=== PATIENT | male | born 1995 | race Caucasian/White ===

== ENCOUNTER 2023-10-12 09:28 | Day surgery (SDC) | payer OTHER, SELFPAY ==
[2023-10-12] VITALS (14 sets, daily range): BP systolic 107–152; BP diastolic 48–105; PULSE 64–89; RESP 16–18; TEMP 36–37.3; O2SAT 91–100; BMI 41.3
--- NOTE | 2023-10-12 | HERN_PTH ---
PATIENT: RODOLFO VALENCIA [place] [facility] [place][id number] AGE/SX: 27/M ROOM: RE10/12/[address]: Dr. Fawad Lockhart MD : 1995 BED: DIS: 10/12/2023 SPEC #: [id number] RECD: 10/13/23 07:41 STATUS: CHAPARRO CORTESKalpesh #: [id number] HUNG: 10/12/23 00:[address]: Fawad Lockhart DEPT: SURGICAL PATHOLOGY RECD BY: Norma Montes De Oca ENTERED: 10/13/23 08:54 SP TYPE: Hernia OTHR DR: Margoth Norman, CAITLYN Tissues: HERNIA Procedures: Surgery Specimen Level II HEADER OPERATION: Incarcerated umbilical hernia repair without mesh PRE-OP DIAGNOSIS: Incarcerated umbilical hernia TISSUE SUBMITTED: Hernia sac and contents MICROSCOPIC DIAGNOSIS Hernia sac and contents: Fragments of fibroadipose and fibroconnective tissue, consistent with hernia sac with acute and chronic inflammation and reactive changes. FELIX/quentin 10/14/2023 MICROSCOPIC DESCRIPTION Slides are reviewed. GROSS DESCRIPTION Received in fixative is one container labeled with the patient's name and designated Hernia sac and contents. The specimen consists of multiple pieces of soft tissue mixed with adipose tissue measuring in aggregate 11.0 x 6.0 x 2.0cm. No mass lesion is identified. Aircraft Fueler sections are submitted in one cassette. FELIX/ 10/13/2023 TC:3 CPT:26065
--- NOTE | 2023-10-12 10:07 | ED.VIS.GI ---
HPI HPI - GI History of Present Illness Chief Complaint: Abd Pain Narrative Narrative: Patient presents with abdominal pain that began yesterday. Patient states that it comes on gradually. Patient states it is intermittent. Patient states it is over the periumbilical area. Patient states he felt some swelling in the umbilical area. Patient states his pain is worse with bending. Patient describes his pain as aching. Patient denies any nausea or vomiting. Patient denies any diarrhea, melena, or hematochezia. Patient denies any urinary complaints. Patient denies any fevers or chills. PFSH PFSH Medical History no medical history no medical history Home Medications ?Medication ?Instructions ?Recorded ?Last Taken ?Type amoxicillin 875 mg-potassium 1 tab PO BID #20 tabs 01/01/22 Unknown Rx clavulanate 125 mg tablet prednisone 20 mg tablet 40 mg (2 x 20 mg) PO DAILY #20 tabs 01/01/22 Unknown Rx Allergy/AdvReac Type Severity Reaction Status Date / Time No Known Allergies Allergy Verified 10/12/23 09:29 Family History (Updated 01/01/22 @ 20:47 by Margoth Norman ANALYTICAL SCIENCES DIRECTOR, ANALYTICAL SCIENCES DIRECTOR-C) Mother Renal failure Other Congestive heart disease Diabetes Heart disease Surgical History no surgical history no surgical history Social History Smoking Status: Never smoker ROS ROS ED Constitutional Constitutional ED: Denies chills or fever(s) Eyes Eyes: Denies blurry vision or change in vision ENT ENT ED: Denies rhinorrhea or sore throat Cardiovascular Cardiovascular: Denies chest pain or palpitations Respiratory/Chest Respiratory/Chest: Denies cough or dyspnea Gastrointestinal Gastrointestinal: Reports abdominal pain; Denies nausea or vomiting Genitourinary Genitourinary ED: Denies dysuria or hematuria Musculoskeletal Musculoskeletal: Denies back pain or neck pain Integumentary Denies abscess or rash Neurologic Neurologic: Denies headache(s) or weakness Allergic/Immunologic Allergic/Immunologic ED: Denies mouth swelling or urticaria EXAM Physical Exam Const Vital Signs: 10/12/23 09:29 10/12/23 13:29 Temperature 96.8 F L Temperature Source Temporal Pulse Rate 77 64 Respiratory Rate 18 16 Blood Pressure 152/105 H 126/78 H Blood Pressure Mean 120 94 Pulse Ox 96 98 Oxygen Delivery Method Room Air Room Air Positive well nourished, well developed and obese General Appearance ED: well developed and NAD Nutritional Appearance: obese HEENT Reports moist mucous membranes Neck supple and no JVD Resp normal respiratory effort and clear to auscultation bilaterally Cardio regular rate and regular rhythm GI non-distended Palpation: soft, tender periumbilical and hernia umbilical Extremity full ROM Neuro CN's II-XII intact bilaterally, moves all extremities and no sensory deficits noted Sensorium / Orientation: alert Motor Exam: strength 5/5 throughout Psych mental status grossly normal MDM MDM MDM Narrative Medical decision making narrative: Differential diagnosis includes incarcerated umbilical hernia, strangulated umbilical hernia, and abdominal mass. CBC will be obtained to assess for leukocytosis and anemia. Basic metabolic profile will be obtained to assess for electrolyte abnormality and renal function. Lab Data Attestation: I reviewed the patient's lab results. Lab results narrative: CBC was reviewed and was within normal limits. Basic metabolic profile was reviewed and was essentially within normal limits. Labs: Laboratory Results - last 24 hr 10/12/23 09:40 WBC 9.1 RBC 5.67 Hgb 16.4 Hct 48.7 MCV 85.9 MCH 28.9 MCHC 33.7 RDW Std Deviation 37.5 RDW Coeff of Reid 11.9 Plt Count 212 MPV 9.9 Immature Gran % (Auto) 0.300 Neut % (Auto) 64.2 Lymph % (Auto) 25.5 [place] % (Auto) 6.5 Eos % (Auto) 2.9 Baso % (Auto) 0.6 Absolute Neuts (auto) 5.8 Absolute Lymphs (auto) 2.32 Nucleated RBC % 0 Sodium 139 Potassium 3.9 Chloride 106 Carbon Dioxide 27.0 Anion Gap 6 BUN 11 Creatinine 0.94 Estim Creat Clear Calc 171.64 Est GFR (MDRD) Af Amer 125 Est GFR (MDRD) Non-Af 103 BUN/Creatinine Ratio 11.8 Glucose 126 H Calcium 9.1 Radiography Diagnostic Testing: Clinical Impression(s) from Imaging Studies Abdomen/Pelvis CT 10/12/23 11:22 IMPRESSION: Findings suggest a Lopez''s type umbilical hernia with increased markings. The neck of the hernia measures 3.3 cm. Fatty infiltration of the liver. Borderline splenomegaly. Electronically Signed: Chivo Yarbrough MD at 13:19 EDT , CT scan of the abdomen pelvis was obtained. There is a Lopez's type umbilical hernia with increased markings. There is no bowel obstruction. This was interpreted by the radiologist was also independently reviewed by myself. Treatment and Re-Evaluation :: Patient was given IV fluids and morphine. I attempted to reduce the hernia with minimal improvement. Patient was unable to tolerate further attempts at reduction. Case was discussed with Dr. Lockhart from general surgery. He recommended applying ice to the area and repeating morphine. This was ordered. He was in to evaluate the patient. He attempted reduction without success. He will take the patient to the operating room later tonight. He recommended giving the patient Ancef and obtaining an EKG. This was ordered. Patient and family understood and were agreeable with the plan. All questions were answered. Discharge Plan Triage Chief Complaint: Abd Pain ED Provider: Robbie Barrett Dx/Rx/DC Orders Clinical Impression: Incarcerated umbilical hernia, Abdominal pain Prescriptions: No Action amoxicillin-pot clavulanate 875-125 mg tablet 1 tab PO BID Qty: 20 0RF prednisone 20 mg tablet 40 mg PO DAILY Qty: 20 0RF Primary Care Provider: Margoth Norman NP Referrals: Fawad Lockhart MD [Med Staff - Active Staff] - 3-5 Days Margoth Norman NP, ANALYTICAL SCIENCES DIRECTOR-C [Primary Care Provider] - 1-2 Weeks Print Language: Yakut Disposition [facility]position: [facility]
[2023-10-12] MEDS: Ondansetron 4 MG/2 ML Vial IV (10:17)
[2023-10-12] MEDS: 0.9% Normal Saline (1000mL) 1,000 ML 1000 ML IV (10:17)
[2023-10-12] MEDS: Morphine 4 MG/ML Syringe IV ×2 (10:17→14:54)
[2023-10-12 10:35] LABS: Anion Gap 6 (5-15); BUN 11 mg/dL (7-18); BUN/Creat Ratio 11.8 RATIO (10-20); Calcium,Total 9.1 mg/dL (8.5-10.1); Chloride 106 mmol/L (98-107); Creatinine, Serum 0.94 mg/dL (0.70-1.30); EST Glomerular Filtration Rate 103 mL/min (>60); Est Glom Filt Rate - Afr Amer 125 mL/min (>60); Estimated Creatinine Clearance 171.64 ml/min; Glucose 126 mg/dL (74-106); Potassium 3.9 mmol/L (3.5-5.1); Sodium Level 139 mmol/L (136-145)
[2023-10-12 10:36] LABS: Absolute Lymphocyte Count 2.32 X10^3/uL (0.83-4.51); Absolute Neutrophil Count 5.8 X10^3/uL (2.0-7.7); Basophil# 0.05 X10^3/uL; Basophil% 0.6 % (0-1); Eosinophil# 0.26 X10^3/uL; Eosinophils% 2.9 % (0-5); Hematocrit 48.7 % (40-54); Hemoglobin 16.4 g/dL (13.0-16.5); Lymphocyte # 2.32 X10^3/ul (0.83-4.51); Lymphocyte % 25.5 % (19-41); Mean Corp Hgb Conc 33.7 g/dL (32-36); Mean Corpuscular Hgb 28.9 pg (27.0-32.0); Mean Corpuscular Volume 85.9 fL (80-94); Mean Platelet Vol. 9.9 fl (6.2-12.0); Monocyte# 0.59 X10^3/uL; Monocyte% 6.5 % (0-10); NRBC Flagged by Analyzer 0 % (0-5); Neutrophil # 5.84 X10^3/uL (2.7-7.7); Neutrophil % 64.2 % (47-70); Platelet Count 212 K/mm3 (150-450); RBC Distribution Width CV 11.9 % (11.6-14.6); RBC Distribution Width SD 37.5 fl (35.1-43.9); Red Blood Count 5.67 M/mm3 (4.6-6.2); White Blood Count 9.1 K/mm3 (4.4-11.0)
--- NOTE | 2023-10-12 11:22 | CT_ITS ---
STUDY: CT ABDOMEN AND PELVIS WITH CONTRAST REASON FOR EXAM: Male, 27 years old. Hernia -- IV PO Contrast. Umbilical pain. RADIATION DOSAGE (If Supplied By Facility): CTDIvol = ( 15.41 ) mGy, DLP = ( 1359.49 ) mGycm TECHNIQUE: Transaxial images were obtained from the dome of the diaphragm to the symphysis pubis with oral contrast. Oral and amp; IV Gastrografin and amp; 100mL Isovue-300 was administered. Sagittal and coronal images were reconstructed. Individualized dose optimization techniques were used for this CT. COMPARISON: None. FINDINGS: Minimal degree of the increased markings at the left lung base suggestive of linear atelectasis. The visualized portions of the heart are within normal limits. There is decreased attenuation of the liver consistent with steatosis. Normal gallbladder and extrahepatic biliary system. Borderline splenomegaly. Normal pancreas. Normal bilateral adrenal glands. Normal right kidney. Normal left kidney. Normal visualized stomach. Normal small intestine. Normal colon. The appendix is visualized and appears normal. Normal abdominal aorta. Normal inferior vena cava. Normal retroperitoneum. There is evidence of an umbilical hernia containing fat. There is evidence of increased attenuation within the herniated fat. A Lopez-type hernia should be ruled out. In the neck of the hernia measures 3.3 cm. There is mild degree of increased markings in the anterior peritoneal fat deep to the umbilical hernia. There is also thickening of the overlying skin. Normal abdominal wall. Normal osseous structures. CT/Abdomen/Pelvis WITH Contrast IMPRESSION: Findings suggest a Lopez''s type umbilical hernia with increased markings. The neck of the hernia measures 3.3 cm. Fatty infiltration of the liver. Borderline splenomegaly. Electronically Signed: Chivo Yarbrough MD at 13:19 EDT ,
--- NOTE | 2023-10-12 15:37 | PCM.PRE.AN2 ---
ASA Classification* ASA Classification ASA Classification: 3 (Morbid obesity) and E Assessment & Plan Anesthesia* Anesthesia Assessment Anesthesia Assessment: Discussed sedation and/or anesthesia options, risks, benefits, and alternatives with patient/parents/legal guardian/POA. Questions invited. The patient/parents/legal guardian/POA seems to understand and agrees to proceed with anesthesia plan. Reviewed the physical assessment, medical history, allergy history and patient home medications list prior to surgery/procedure/anesthetic and documented any changes. Performed airway and anesthesia risk assessments. 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 When Was Last Pacemaker Check QUESTION #4 FULL TEXT: You/Your Family Experience fever (hyperthermia) with Anesthesia Last Oral Intake Last Oral intake: Last Oral Intake NPO since Meds taken in AM with sips of water? Meds patient instructed to take am of surgery Any additional information?: Yes NPO since: 05:30 PONV PONV - guest laundry attendant: PONV - guest laundry attendant Female HX of Motion Sickness HX of N/V After Surgery Non-Smoker Duration of Surgery greater than 60 minutes Number of Risk Factors PONV Score Height & Weight Height & Weight: Anesthesia: Height & Weight Height 6 ft 10/12/23 15:28 Weight: 138.346 kg 10/12/23 15:28 Body Mass Index (BMI) 41.3 10/12/23 15:28 Respiratory Assessment Respiratory Assessment - guest laundry attendant: Respiratory Tract Infection Hx - guest laundry attendant Hx Respiratory Tract Infection No 10/12/23 15:28 STOP Sleep Apnea STOP Sleep Apnea - guest laundry attendant: STOP Sleep Apnea - guest laundry attendant Hx Hypertension No 10/12/23 15:28 Hx Sleep Apnea No 10/12/23 15:28 CPAP BIPAP Do you snore loudly (louder No 10/12/23 15:28 than talking or can be heard Do you often feel tired/ No 10/12/23 15:28 fatigued/ sleepy during daytime? Has anyone observed you stop No 10/12/23 15:28 breathing during sleep? STOP Results Negative 10/12/23 15:28 QUESTION #5 FULL TEXT : Do you snore loudly (louder than talking or can be heard through closed doors)? Tobacco Use History Tobacco Use History - guest laundry attendant: Tobacco Use History - guest laundry attendant Tobacco Use Smoking Status Never smoker 10/12/23 09:29 Hx Tobacco Use Years Smoking Packs Smoked per Day Smoking Cessation Date was within the last 15 years Hx Smoking Cessation Date Hx Smoking Cessation Counseling Hematologic Medial History Hematologic Hx - guest laundry attendant: Hematologic Medical Hx - overlock sleeve setter Hx of Blood Transfusion Hx of Transfusion in last 3 Months Date of Last Transfusion (if within last 3 months) Ever experience any problems with transfusion(s)? Specify any problems Hx of Preganancy in last 3 Months Nurse Filling Out Transfusion & Questions: Date: Time: Patient unable to answer at this time (ie. confused, unrespo /Reproduction History /Reproductive History - guest laundry attendant: /Reproductive Hx- guest laundry attendant Hx Now No 10/12/23 15:28 Gestational Age (in weeks): EDC: Hx Hx Para Hx Section SAB No 10/12/23 15:28 Active Medications Active Medications: Current Medications Generic Name Dose Route Start Last Admin Trade Name Freq PRN Reason Stop Dose Admin Cefazolin Sodium 3 gm/ Sodium 115 mls @ 150 mls/hr 10/12/23 15:16 Chloride IV 10/12/23 16:01 X1 ONE Anesthesia Focused Assessment* Temperature: 97.6 F Pulse Rate: 78 Blood Pressure: 134/76 Respiratory Rate: 16 Pulse Ox: 99 Oxygen Delivery Method: Room Air Airway Assessment Mouth opens: >3 cm Mallampati Score: II Teeth Condition: Intact Neck Range of motion (ROM): Limited ROM (Somewhat decreased extension) Focused Labs Anesthesia Preop lab: CBC WBC 9.1 K/mm3 (4.4-11.0) 10/12/23 09:40 RBC 5.67 M/mm3 (4.6-6.2) 10/12/23 09:40 Hgb 16.4 g/dL (13.0-16.5) 10/12/23 09:40 Hct 48.7 % (40-54) 10/12/23 09:40 Plt Count 212 K/mm3 (150-450) 10/12/23 09:40 CHEMISTRY Potassium 3.9 mmol/L (3.5-5.1) 10/12/23 09:40 Sodium 139 mmol/L (136-145) 10/12/23 09:40 BUN 11 mg/dL (7-18) 10/12/23 09:40 Creatinine 0.94 mg/dL (0.70-1.30) 10/12/23 09:40 Glucose 126 mg/dL (74-106) H 10/12/23 09:40 COAG Review of Systems (Anesthesia) ROS Narrative System reviewed and no additional complaints, except as documented. PFSH Medical History no medical history Allergy/AdvReac Type Severity Reaction Status Date / Time No Known Allergies Allergy Verified 10/12/23 15:35 Family History Mother Renal failure Other Congestive heart disease Diabetes Heart disease Surgical History no surgical history Social History Smoking Status: Never smoker
--- NOTE | 2023-10-12 15:46 | PCM.HP.STD ---
HPI - General HPI Narrative RODOLFO VALENCIA, is a 27 M who presents with umbilical pain. The patient says that started yesterday. He says he has noted a hernia for a few months but does not know how long, he is usually able to push it back in. He says yesterday it came out larger than it normally is and it hurt much more and it did not go back in. Today the pain continued. He has never had abdominal surgery. PFSH Medical History no medical history Allergy/AdvReac Type Severity Reaction Status Date / Time No Known Allergies Allergy Verified 10/12/23 15:35 Family History Mother Renal failure Other Congestive heart disease Diabetes Heart disease Surgical History no surgical history Social History Smoking Status: Never smoker ROS Constitutional Constitutional: Denies anorexia, chills or fatigue Eyes Eyes: Denies blurry vision ENT HEENT: Denies abnormal hearing Cardiovascular Cardiovascular: Denies chest pain Respiratory/Chest Respiratory/Chest: Denies cough or dyspnea Gastrointestinal Gastrointestinal: Reports abdominal pain; Denies dysphagia, hematemesis, nausea or vomiting Genitourinary Genitourinary: Denies change in urinary stream Musculoskeletal Musculoskeletal: Denies abnormal gait Integumentary Integumentary: Denies jaundice Neurologic Neurologic: Denies abnormal gait Psychiatric Psychiatric: Denies depression Endocrine Endocrinology: Denies flushing Vital Signs Vital Signs Vital Signs: 10/12/23 09:29 10/12/23 13:29 10/12/23 15:28 Temperature 96.8 F L 97.8 F Temperature Source Temporal Temporal Pulse Rate 77 64 78 Respiratory Rate 18 16 18 Respiratory Pattern Blood Pressure 152/105 H 126/78 H 142/79 H Blood Pressure Mean 120 94 100 Blood Pressure Source Monitor Blood Pressure Position Semi-Fowlers Blood Pressure Location Right Arm Pulse Ox 96 98 98 Oxygen Delivery Method Room Air Room Air Room Air 10/12/23 15:33 10/12/23 15:38 10/12/23 15:43 Temperature 97.6 F L 97.6 F L Temperature Source Pulse Rate 78 78 Respiratory Rate 16 16 Respiratory Pattern Normal Blood Pressure 134/76 H 134/76 H Blood Pressure Mean 95 Blood Pressure Source Blood Pressure Position Blood Pressure Location Pulse Ox 99 99 Oxygen Delivery Method Room Air Weight Weight: 305 lb Body Mass Index (BMI) 41.3 Physical Exam Const oriented x3 and no apparent distress Resp normal respiratory effort Cardio regular rate and regular rhythm GI soft to palpation Palpation: tender Results Lab / Micro Data 10/12/23 09:40 10/12/23 09:40 Labs: Laboratory Results - last 24 hr 10/12/23 09:40: WBC 9.1, RBC 5.67, Hgb 16.4, Hct 48.7, MCV 85.9, MCH 28.9, MCHC 33.7, RDW Std Deviation 37.5, RDW Coeff of Reid 11.9, Plt Count 212, MPV 9.9, Immature Gran % (Auto) 0.300, Neut % (Auto) 64.2, Lymph % (Auto) 25.5, [place] % (Auto) 6.5, Eos % (Auto) 2.9, Baso % (Auto) 0.6, Absolute Neuts (auto) 5.8, Absolute Lymphs (auto) 2.32, Nucleated RBC % 0, Sodium 139, Potassium 3.9, Chloride 106, Carbon Dioxide 27.0, Anion Gap 6, BUN 11, Creatinine 0.94, Estim Creat Clear Calc 171.64, Est GFR (MDRD) Af Amer 125, Est GFR (MDRD) Non-Af 103, BUN/Creatinine Ratio 11.8, Glucose 126 H, Calcium 9.1 Imaging Radiology Impression Abdomen/Pelvis CT 10/12/23 11:22 IMPRESSION: Findings suggest a Lopez''s type umbilical hernia with increased markings. The neck of the hernia measures 3.3 cm. Fatty infiltration of the liver. Borderline splenomegaly. Electronically Signed: Chivo Yarbrough MD at 13:19 EDT , Assessment & Plan Assessment/Plan (1) Incarcerated umbilical hernia: PLAN: The patient has an incarcerated umbilical hernia containing fat with inflammation on the CT scan. White count is normal. Patient reports he has had a hernia but normally is able to push it back in. I was unable to reduce the hernia and neither was the ER doctor. I discussed surgery with him. I discussed umbilical hernia repair without mesh. I would not recommend mesh placement due to the inflammation in the area and the contaminated field. I discussed repairing it with sutures. I discussed the risks of the procedure such as bleeding, infection, injury to underlying organs. I also discussed possibly resecting the fat that was incarcerated in the hernia. Patient is aware of the risks and is willing to proceed. Fawad Lockhart MD Pager: [facility] [address] [place] [address] Office:
[2023-10-12] MEDS: Lactated Ringers 1,000 ML 15 ML IV (15:49)
[2023-10-12] MEDS: Cefazolin 3 GM in 0.9% Normal Saline (100mL Bag) 100 ML IV (16:02)
[2023-10-12] MEDS: Bupiv/Epi 0.25% 30 ML Vial (16:25)
--- NOTE | 2023-10-12 16:49 | DCINST_ITS ---
Discharge Instructions Follow Up Care Test Results: Test results from this visit will be discussed in further detail at your follow- up appointment, if applicable. Discharge Plan Admission Attending Provider: Fawad Lockhart Primary Care Provider: Margoth Norman NP Instructions Print Language: Kenyan Discharge Orders/Prescriptions Referrals / Follow Up: Fawad Lockhart MD [Med Staff - Active Staff] - 3-5 Days Margoth Norman NP, CABLE WIRER-C [Primary Care Provider] - 1-2 Weeks Disposition Disposition (needs filled in before D/C Order can be placed): Home, Self Care
--- NOTE | 2023-10-12 16:49 | EX.PCM.DISCH ---
Discharge Instructions Procedure Hernia Diet Discharge Diet: Light diet - advance as tolerated Activity Discharge Activity: May Not Drive (for 2-3 days or while taking narcotic pain meds.) and May Shower (with the bandage in place 1-2 days after surgery.) Lifting Restrictions: 20 pounds for 6 weeks. Additional Activity Instructions:: Climbing stairs is fine, walking is encouraged. Sitting in bed may be uncomfortable. Sitting up using your lateral muscles (sitting up sideways) is usually more comfortable. Do not drive, work heavy equipment of sign legal documents for 24 hours. An ice pack can provide more comfort. Pain medications may cause nausea, you should typically eat light foods as you take your pain medications. Pain medications may also cause constipation. If you have difficulty with this, discuss with your doctor. Alternate ibuprofen and Tylenol for pain, oxycodone for breakthrough pain. Dressing / Incision Call your doctor if your incision/area has: Continuous Slow Oozing, Sudden Increased Bleeding, Increased Pain/ Swelling, Increased Redness and Foul Smelling Discharge Call your doctor if you observe: Fever of 101 or Higher Suture Line Care: Avoid Pulling/Pushing and Avoid Pinching/Bending Remove Dressing in: 2 days (Remove clear bandages in 2 days, remove Steri-Strips in 7 to 10 days.) Cleanse incision/area with: Soap & Water Follow Up Care Please Follow Up With: Fawad Lockhart MD When: Please call to schedule 2 week follow up appointment. [phone] Test Results: Test results from this visit will be discussed in further detail at your follow-up appointment, if applicable. Discharge Plan Admission Attending Provider: Fawad Lockhart Primary Care Provider: Margoth Norman NP Instructions Print Language: Senegalese Discharge Orders/Prescriptions Prescriptions: New acetaminophen 325 mg Tablet 650 mg PO Q4H PRN PRN (Reason: Pain 1-10 Or Fever) Qty: 0 0RF oxycodone 5 mg Tablet 5 - 10 mg PO Q4H PRN PRN (Reason: Pain Score 4-10) 5 Days Qty: 20 0RF Referrals / Follow Up: Fawad Lockhart MD [Med Staff - Active Staff] - 3-5 Days Margoth Norman NP, REAL ESTATE INVESTOR-C [Primary Care Provider] - 1-2 Weeks Disposition Disposition (needs filled in before D/C Order can be placed): Home, Self Care
--- NOTE | 2023-10-12 16:49 | PCM.POST.ANE ---
Anesthesia: Postop Eval I Current Vital Signs Temperature: 98.9 F Pulse Rate: 86 Blood Pressure: 121/48 Respiratory Rate: 16 Pulse Ox: 94 Oxygen Delivery Method: Room Air Assessment Airway patent: Yes Spontaneous unlabored respirations: Yes Mental status: Awake and Calm nausea: No Vomiting: No Anesthesia Complication: No Fluid Hydration Crystalloid volume administer (ml): 700 Total IV fluid infused: 700 Progress Note Anesthesia document: Postop Eval 1 completed: Yes
--- NOTE | 2023-10-12 16:54 | PCM.OPRPT ---
Report of Operation Date of Procedure: 10/12/23 Pre-Operative Diagnosis: Strangulated umbilical hernia containing fat less than 3 cm Post-Operative Diagnosis: Same Surgery/Procedure Performed:: Strangulated umbilical hernia repair less than 3 cm Type of Anesthesia: General/Regional Specimen's removed: Umbilical hernia sac and contents Estimated Blood Loss (mL): 10 Description of Procedure: Patient was brought back to the operating room and general anesthesia was induced. The abdomen was prepped and draped in usual sterile fashion. A curvilinear incision was marked inferior to the umbilicus and injected with local static. Skin incision was made. The stalk was taken off of the hernia sac using electrocautery and sharp dissection. The hernia sac was dissected free from the surrounding adipose tissue using blunt dissection. The hernia sac was then opened and it appeared to contain necrotic fat. The necrotic fat was transected and the hernia sac was resected as well. There was good hemostasis. Next the hernia defect was reapproximated using [id number] #1 Nurolon sutures. There was good approximation with little tension. The cavity was irrigated and suctioned dry. The umbilical stalk was sutured to the fascia using 3-0 Vicryl suture. The skin incision was closed with interrupted 3-0 Vicryl sutures. Steri-Strips and bandages were applied. Patient was taken to PACU in stable condition and tolerated the procedure well. Grafts/Implants Used: No mesh used Admit VTE Documentation VTE Mechan Device Prophylaxis: SCD's
[2023-10-12] MEDS: oxyCODONE 5 MG Tablet PO (18:12)
--- NOTE | 2023-10-13 11:01 | POSTOPAN2_ITS ---
Anesthesia Postop Eval I Sum Postop Eval Completion status Anesthesia document: Postop Eval 1 completed: Yes Anesthesia Postop Eval I Summary Anesthesia Postop Eval I Summary: Anesthesia Postop Eval I: Assessment Summary Airway patent Yes 10/12/23 16:50 [email or web address] Spontaneous unlabored Yes 10/12/23 16:50 CAREERS COUNSELLOR.DARRION respirations Mental status Awake,Calm 10/12/23 16:50 CAREERS [email or web address].SKOBY nausea No 10/12/23 16:50 CAREERS COUNSELLOR.SKOBY Vomiting No 10/12/23 16:50 CAREERS COUNSELLOR.CMOBMari Anesthesia Postop Eval I: Fluid Summary Crystalloid volume administer 700 10/12/23 16:50 CAREERS [email or web address] (ml) Colloids volume administered ( ml) Blood Product volume administered (ml) Total IV fluid infused 700 10/12/23 16:50 CAREERS COUNSELLOR.CMOBMari Anesthesia Postop Eval I: Summary Notes Anesthesia Complication No 10/12/23 16:50 CAREERS COUNSELLOR.DARRION Anesthesia Complication Comment: Post-operative progress note Anesthesia: Postop Eval II Evaluation Mental status: Awake and Calm Pain Level: 1 nausea: No Vomiting: No Complications Anesthesia Complication: No
--- NOTE | 2023-10-13 11:01 | PCM.POSTANE2 ---
Anesthesia Postop Eval I Sum Postop Eval Completion status Anesthesia document: Postop Eval 1 completed: Yes Anesthesia Postop Eval I Summary Anesthesia Postop Eval I Summary: Anesthesia Postop Eval I: Assessment Summary Airway patent Yes 10/12/23 16:50 OPERATIONS RECRUITER.[email or web address] Spontaneous unlabored Yes 10/12/23 16:50 OPERATIONS RECRUITER.DARRION respirations Mental status Awake,Calm 10/12/23 16:50 OPERATIONS RECRUITER.SKOBY nausea No 10/12/23 16:50 OPERATIONS RECRUITER.SKOBY Vomiting No 10/12/23 16:50 OPERATIONS RECRUITER.CMOBMari Anesthesia Postop Eval I: Fluid Summary Crystalloid volume administer 700 10/12/23 16:50 OPERATIONS RECRUITER.SKOBY (ml) Colloids volume administered ( ml) Blood Product volume administered (ml) Total IV fluid infused 700 10/12/23 16:50 OPERATIONS RECRUITER.CMOBMari Anesthesia Postop Eval I: Summary Notes Anesthesia Complication No 10/12/23 16:50 OPERATIONS RECRUITER.DARRION Anesthesia Complication Comment: Post-operative progress note Anesthesia: Postop Eval II Evaluation Mental status: Awake and Calm Pain Level: 1 nausea: No Vomiting: No Complications Anesthesia Complication: No
== END 2023-10-12 19:01 | disposition home or self-care (01) ==
LOC: ED 15:16 → SDC 15:25 → ACINP 15:25
PROVIDERS: Emergency Provider Emergency Medicine; PCP Nurse Practitioner; Visit Provider Surgery
PROC: (CPT 49592; principal; 2023-10-12 15:45)
DX: K42.0 Umbilical hernia with obstruction, without gangrene (principal); E66.01 Morbid (severe) obesity due to excess calories
CPT/HCPCS: 49592; 00830; 74177; 80048; 85025; 88302; 93005; 99284; J7030; J7120; Q9967; A4216; J2405